=== PATIENT | female | born 1990 | race Caucasian/White ===

== ENCOUNTER 2019-03-04 09:30 | Outpatient (RCR) | payer OTHER, SELFPAY ==
--- NOTE | 2019-02-11 10:20 | PTOPEVAL ---
Thank you for referring this patient to [facility]. Please review, sign, date and return this plan of care LILIAN. Pt seen for her initial evaluation today to address her yennifer hip pain. She requires additional skilled therapy 1-2x/wk x 3 wk to address her pain, soft tissue restriction, muscle weakness and movement impairments. I agree with and certify that the following plan of care is medically necessary. Referring Physician Date Attending Provider: Amber Giron, GARBAGE COLLECTOR Referring Provider: *PT Outpatient Evaluation Start: 02/11/19 09:14 Freq: Status: Active Protocol: Document 02/11/19 09:15 SARAVANAN (Rec: 02/11/19 10:07 SARAVANAN [id number]) Therapy Assessment Status Assessment Status Assessment Status Evaluation Outpatient Past Medical History Reproductive History Hx Other Reproductive Disorders Yes: 36 week Evaluation Information Problem Diagnosis yennifer hip pain Onset August Cause Subjective Information This pt's 3rd . Feb Query Text:As Reported By Patient/ is due date. Hip pain Family started in August with progression of pain 2 wks ago. She has been using an SI belt , stretches and tylenol. She has been performing cat-camel stretch, hip abd/add isometric . She reports the pain started on right back and hip region and then progressed to left side. She had the same symptoms with her 2nd and received 2 treatment. She is limited with walking, steps, carrying objects >10# due to pain. She has a 2 and 1 year old at home. She is trying to limit her lifting of them to avoid increased pain. Previous Treatments Previous Treatments For This Problem during 2nd Prior Level of Function Activity Level (Last 3 Months) Occupation medical office Activity of Daily Living Ability Independent Indoor/Home Mobility Independent Community Mobility Independent Cooking Yes Cleaning Yes Laundry Yes Shopping Yes Driving Yes Pain Assessment Timing of Pain Assessment Timing of Pain Assessment Assessment Pain Scale Pain Scale Used Numeric (1 - 10) Self Report Pain Assessment B
--- NOTE | 2019-02-22 08:12 | PCPTNOTE ---
Patient called & cancelled scheduled appointment this date due to being sick.
--- NOTE | 2019-03-07 08:28 | PCPTNOTE ---
Patient cancelled scheduled appointment this date due to being induced by MD. Will hold chart open for 30 days.
--- NOTE | 2019-03-30 10:07 | PCPTNOTE ---
Admitting Provider: Attending Provider: Amber Giron, DAIRY NUTRITIONIST Patient:Milena Perez Date of :1990 Patient has not returned for any further treatments since 03/04/2019, therefore she will be discharged from therapy at this time. The goals have been partially achieved. At her last visit she demonstrated improved trunk and pelvic position with standing and walking, decreased pain at rest and with activities. She is indep with a HEP and understanding of self-management of pain and pelvic alignment. Thank you for referring this patient to [facility]. Please review, sign, date and return this discharge summary LILIAN. I have been updated about the patient's current status and I agree with discharge from the above service at this time. Referring Physician Date
== END 2019-03-31 08:43 | disposition home or self-care (01) ==
LOC: ANHPT 09:30
PROVIDERS: Visit Provider Nurse Practitioner Family
DX: O99.89 Other specified diseases and conditions complicating pregnancy, childbirth and the puerperium (principal); M25.552 Pain in left hip; M25.551 Pain in right hip; Z3A.36 36 weeks gestation of pregnancy
CPT/HCPCS: 97110; 97140; 97162

== ENCOUNTER 2021-01-08 11:13 | Outpatient (CLI) | payer OTHER, SELFPAY ==
--- NOTE | ~2021-01-08 | US_ITS ---
EXAMINATION: US OB <= 14 weeks fetus DATE: 01/08/2021 12:00 INDICATION: with inconclusive viability. First trimester. TECHNIQUE: Real-time transabdominal and transvaginal pelvic ultrasound was performed. COMPARISON: None. FINDINGS: TRANSABDOMINAL ULTRASOUND: The uterus measures 8.5 x 4.4 x 5.2 cm. TRANSVAGINAL ULTRASOUND: The endometrial complex measures 8 mm in thickness. There is no visible intr auterine gestational sac. The right ovary measures 2.7 x 1.6 x 1.6 cm. The left ovary measures 1.9 x 1.1 x 1.6 cm. There is no free fluid in the pelvis. IMPRESSION: 1. No visible intrauterine gestational sac, which may be normal in early . Spontaneous abor tion and ectopic are not excluded. Serial beta hCGs are recommended. Reviewed, dictated and finalized at location A. TING TECHNICIAN IMPRESSION: 1. No visible intrauterine gestational sac, which may be normal in early pregn gareth. Spontaneous and ectopic are not excluded. Serial beta hCGs are recommended.
== END 2021-01-08 11:14 | disposition home or self-care (01) ==
PROVIDERS: Visit Provider Obstetrics & Gynecology Gynecology
DX: O36.80X0 Pregnancy with inconclusive fetal viability, not applicable or unspecified (principal); Z3A.00 Weeks of gestation of pregnancy not specified
CPT/HCPCS: 36415; 76801; 84702

== ENCOUNTER 2021-01-08 12:22 | Outpatient (RCR) | payer OTHER, SELFPAY ==
[2021-01-08 13:10] LABS: Beta HCG Quantitative 3.49 mIU/ML
== END 2021-01-22 10:41 | disposition home or self-care (01) ==
LOC: ANHLAB 12:22
PROVIDERS: Visit Provider Obstetrics & Gynecology Gynecology
DX: O36.80X0 Pregnancy with inconclusive fetal viability, not applicable or unspecified (principal); Z3A.00 Weeks of gestation of pregnancy not specified
CPT/HCPCS: 36415; 84702

== ENCOUNTER → 2021-06-10 14:25 | Outpatient (CLI) | payer OTHER, SELFPAY ==
--- NOTE | ~2021-06-10 | US_ITS ---
EXAMINATION: US pelvic complete DATE: 06/10/2021 14:41 INDICATION: Irregular menstruation TECHNIQUE: Multiple transabdominal sonographic images of the pelvis were obtained. COMPARISON: 04/22/2012 FINDINGS: Uterus: 8.9 x 4.8 x 5.9 cm. Endometrial complex measures 0.9 cm. Right Ovary: 3.4 x 2.1 x 2.6 cm. Vascular flow is present. Left Ovary: 2.8 x 1.6 x 2.5 cm. Vascular flow is present. There is no free fluid in the pelvis. IMPRESSION: 1. Normal transabdominal pelvic sonogram findings. Reviewed, dictated and finalized at location K.
== END ==
PROVIDERS: Visit Provider Nurse Practitioner
DX: N92.6 Irregular menstruation, unspecified (principal)
CPT/HCPCS: 76856

== ENCOUNTER 2021-09-27 09:55 | Outpatient (CLI) | payer OTHER, SELFPAY ==
--- NOTE | ~2021-09-27 | US_ITS ---
Corrected Report See Bolded Text Order # associated 10/08/2021 SLJ EXAMINATION: US OB <=14 wk fetus w TV; US OB ADD MULTI GESTATION DATE: 06/06/16 13:35:00 INDICATION: Establish dating of during first trimester TECHNIQUE: Real-time pelvic ultrasound utilizing both a transvaginal and transabdominal probe was performed. The interpreting radiologist was not present for the study. COMPARISON: None. FINDINGS: The uterus measures 9.6 x 9.6 x 9.9 cm. There are 2 separate intrauterine gestational sacs by a thick membrane consistent with dichorionic diamniotic . A yolk sac and pole are identified in each gestational sac. 3.1 x 1.2 x 0.6 cm hypoechoic subchorionic hemorrhage at the right side of the uterine fundus. The crown rump length for fetus A in the sac positioned on the left measures 4.0 cm, which correlates with an estimated gestational age of 11 weeks and 0 days. heart motion is identified measuring 147 beats per minute (bpm) by M-mode Doppler. The crown rump length for fetus B in the sac positioned on the right measures 4.0, which correlates with an estimated gestational age of 11 weeks and 0 days. heart motion is identified measuring 153 beats per minute (bpm) by M-mode Doppler. The bilateral ovaries are not visualized. There is no free fluid in the pelvis. IMPRESSION: 1. Dichorionic, diamnionic with 2 living fetuses. 2. Gestational age by ultrasound of 11 weeks 0 day(s) +/- 7 day(s) with ultrasound estimated date of delivery (VIRI) of 04/18/2022. 3. Small subchorionic hematoma. Reviewed, dictated and finalized at location A. MTDD IMPRESSION: 1. Dichorionic, diamnionic with 2 living fetuses. 2. Gestational age by ultrasound of 11 weeks 0 day(s) +/- 7 day(s) with ultras ound estimated date of delivery (VIRI) of 04/18/2022. 3. Small subchorionic hematoma.
== END 2021-09-27 09:56 ==
LOC: MICIMG 09:57
PROVIDERS: PCP Obstetrics & Gynecology Gynecology; Visit Provider Obstetrics & Gynecology Gynecology
DX: O20.8 Other hemorrhage in early pregnancy (principal); Z3A.11 11 weeks gestation of pregnancy
CPT/HCPCS: 76801; 76802; 76817

== ENCOUNTER → 2021-10-29 14:24 | Outpatient (CLI) | payer OTHER, SELFPAY ==
--- NOTE | ~2021-10-29 | US_ITS ---
EXAMINATION: US OB limited DATE: 10/29/2021 15:12 INDICATION: Subchorionic hematoma during second trimester TECHNIQUE: Real-time ultrasound of the pelvis was performed. The interpreting radiologist was not pre sent for the study. COMPARISON: 09/27/2021 FINDINGS: FINDINGS: There are two living fetuses. The placenta(s) is/are anterior with twin peak sign with intervening t hick intervening membrane consistent with a dichorionic diamniotic . A small anechoic placen patricia desir is seen with the placenta projects between the 2 fetuses. The amniotic fluid volume is subje ctively normal. Fetus A on maternal left: Presentation is breech. cardiac activity and movement are noted. heart rate is 162 beats per minute (bpm). Fetus B on maternal right: Presentation is breech. cardiac activity and movement are noted. heart rate is 151 beats per minute (bpm). IMPRESSION: 1. Living dichorionic diamniotic twin fetuses with heart rates of 162 and 151 BPM respectively. 2. Placental desir. No evident subchorionic hematoma. Reviewed, dictated and finalized at location A.
== END ==
PROVIDERS: PCP Obstetrics & Gynecology Gynecology; Visit Provider Obstetrics & Gynecology Gynecology
DX: O36.8920 Maternal care for other specified fetal problems, second trimester, not applicable or unspecified (principal); Z3A.00 Weeks of gestation of pregnancy not specified
CPT/HCPCS: 76815

== ENCOUNTER 2021-12-24 10:50 | Outpatient (CLI) | payer OTHER, SELFPAY ==
--- NOTE | 2021-12-24 | ECG_ITS ---
Measurements Intervals [place] Rate: 87 P: -17 WV: 126 QRS: -23 QRSD: 101 T: 25 QT: 355 QTc: 427 Interpretive Statements SINUS RHYTHM INCOMPLETE RIGHT BUNDLE BRANCH BLOCK DELAYED PRECORDIAL R/S TRANSITION BORDERLINE ECG NO PREVIOUS ECG AVAILABLE FOR COMPARISON Electronically Signed On 12-24-2021 11:43:05 CDT by Jameson Ramirez D.O.
== END 2021-12-24 10:51 | disposition home or self-care (01) ==
LOC: ANHCARD 10:54
PROVIDERS: PCP Obstetrics & Gynecology Gynecology; Visit Provider Obstetrics & Gynecology Gynecology
DX: R06.02 Shortness of breath (principal); I45.10 Unspecified right bundle-branch block
CPT/HCPCS: 93005

== ENCOUNTER 2022-01-12 19:20 | Emergency (ER) | payer OTHER, SELFPAY ==
--- NOTE | ~2022-01-12 | CT_ITS ---
EXAMINATION: CTA chest PE protocol DATE: 01/12/2022 20:56 INDICATION: dyspnea, tachycardia x several weeks, TECHNIQUE: Computed tomography angiography (CTA) of the chest was performed , and patella. Marginal. This intravenous contrast timed to evaluate the pulmonary arteries. Coronal maximum intensity project ion 3D-reconstructions were created by the technologist. The dose-length product (DLP) was 466.15 mGy -cm. Automated exposure control and iterative reconstruction technique were employed. COMPARISON: None. FINDINGS: Lung parenchyma and airways: Clear. Pleura: Unremarkable. Thoracic inlet, axillae and chest wall: Unremarkable. Thoracic aorta: Normal. Mediastinum: Normal. Heart and pericardium: Normal. Coronary artery calcifications: Absent. Upper abdomen: The liver and spleen appear enlarged, likely due to concurrent . Bones: No acute osseous finding. Pulmonary arteries: Study quality: Degraded by late contrast phase and mild respiratory motion, such that subsegmental and non-occlusive segmental emboli could be missed. No pulmonary emboli detected. IMPRESSION: Limited examination as detailed above. Within those constraints, no definite CT evidence of acute sara tral or occlusive segmental pulmonary embolus. Reviewed, dictated and finalized at location K. NEER DESIGN AND CONSTRUCTION IMPRESSION: Limited examination as detailed above. Within those constraints, no definite CT evidence of acute central or occlusive segmental pulmonary embolus.
[2022-01-12 19:26] VITALS: BP 120/71; PULSE 113; RESP 20; TEMP 36.6; O2SAT 100
[2022-01-12] MEDS: LACTATED RINGERS 1,000 ML 999 ML IV CONT (19:55)
[2022-01-12 20:01] LABS: Basophils Percent Auto 0.2 % (0.2-1.2); Eosinophils Absolute Auto 0.1 K/mm3 (0-0.3); Eosinophils Percent Auto 1.2 % (0-4.4); Hemoglobin 8.8 g/dL (12.0-15.0); Immature Granulocyte Absolute 0.13 K/mm3 (0.00-0.031); Immature Granulocyte Percent A 1.5 % (0-0.5); Lymphocytes Absolute Auto 1.28 K/mm3 (0.9-3.2); Lymphocytes Percent Auto 14.9 % (18.3-44.2); Mean Corpuscular HGB Conc 32.6 g/dl (32-36); Mean Corpuscular Hemoglobin 29.9 pg (26-34); Mean Corpuscular Volume 91.8 fl (80-100); Monocytes Absolute Auto 0.5 K/mm3 (0.1-0.6); Monocytes Percent Auto 5.8 % (2.6-8.5); Neutrophils Absolute Auto 6.5 K/mm3 (1.3-6.7); Neutrophils Percent Auto 76.4 % (45.5-73.1); Platelet Count Result 243 k/mm3 (150-375); Red Blood Count 2.94 M/mm3 (4.2-5.4); Red Cell Distribution Width 13.1 % (11.5-14.5); White Blood Count 8.6 K/mm3 (4.5-10.0)
[2022-01-12 20:11] LABS: Influenza A QL RT-PCR Negative (Negative); Influenza B QL RT-PCR Negative (Negative); SARS-CoV-2 RNA PCR Positive
[2022-01-12 20:12] LABS: Alanine Aminotransferase 23 U/L (6-35); Albumin Level 3.9 g/dL (3.5-5.1); Alkaline Phosphatase 134 U/L (38-126); Anion Gap 7 mmol/L (8-16); Aspartate Amino Transferase 31 U/L (14-36); Bilirubin,Total 0.4 mg/dL (0.2-1.3); Blood Urea Nitrogen 4 mg/dL (7-17); Calcium 8.7 mg/dL (8.4-10.2); Carbon Dioxide 23 mmol/L (22-30); Chloride 104 mmol/L (98-107); Estimated Glomerular Filt Rate > 60; Glucose 97 mg/dL (65-110); Magnesium 1.4 mg/dL (1.6-2.3); Potassium 3.6 mmol/L (3.4-5.0); Sodium 134 mmol/L (137-145)
[2022-01-12 20:16] LABS: INR 0.9; Prothrombin Time 11.7 Seconds (11.1-14.7)
[2022-01-12 20:17] LABS: Partial Thromboplastin Time 26.9 SECONDS (22.3-36.8)
[2022-01-12 20:19] LABS: D Dimer 0.98 ug/mL (<0.48)
--- NOTE | 2022-01-12 20:27 | ED.URI ---
HPI - URI/Sore Throat General Chief Complaint: Upper Respiratory Infection Stated Complaint: sent by PCP-body aches, chillsc congestion Time Seen by Provider: 01/12/22 19:31 History of Present Illness HPI Narrative: 31-year-old female who is 26 weeks with twins presents here with URI symptoms for the last 4 days and increasing shortness of breath and chest tightness, she states that about a month ago she started developing shortness of breath and chest tightness as well as tachycardia, she had been getting worked up for this including a cardiology consult and EKG, has never had a workup for blood clots. Related Data Home Medications Medication Instructions Recorded Confirmed levothyroxine 50 mcg tablet 50 mcg PO DAILY 02/18/19 02/22/19 vit no.95-ferrous 1 tablet PO DAILY 02/18/19 02/22/19 fumarate 28 mg-folic acid 800 mcg tablet () ferrous sulfate 325 mg (65 mg 325 mg PO DAILY 02/22/19 02/22/19 iron) tablet aspirin 81 mg tablet,delayed mg 01/12/22 release ondansetron HCl 4 mg tablet mg 01/12/22 Allergies Allergy/AdvReac Type Severity Reaction Status Date / Time No Known Allergies Allergy Verified 01/12/22 19:29 Review of Systems Review of Systems: CONST: Fever. HEENT: Sore throat C/V: Chest tightness RESP: Cough and dyspnea on exertion GI: Nausea : No dysuria. M/S: Muscle aches SKIN: No rash. NEURO: [No headache or focal numbness or weakness] PSYCH: [No depression] [facility] Past Medical History Medical History Hypothyroidism Family History Family History Mother Glaucoma Hypertension Rheumatoid arthritis Diabetes mellitus Father Hypertension Hypothyroidism Sibling Hypothyroidism Social History Social History Smoking status: Never smoker Substance use: never Gender identity (if verbalized by the patient): Female Spiritual care concerns: No Exam Narrative: EXAMINATION OF ORGAN SYSTEMS/BODY AREAS: Constitutional: Vital signs per nursing GENERAL:[No acute distress, non-toxic appearing.] HEAD: Normal with no signs of head trauma. EYES: EOMI, conjunctiva normal ENT: Hearing grossly intact, rhinorrhea LUNGS: Slightly dyspneic, clear lungs HEART: Tachycardic ABD: [Soft], gravid, nontender to palpation EXT: Normal range of motion, no lower extremity edema SKIN: [No rashes or lesions.] NEURO: [Alert and oriented x 3. No gross focal sensory or strength deficits.] PSYCH: Normal affect Course Vital Signs Vital signs: Vital Signs Temperature 97.9 F 01/12/22 19:26 Pulse Rate 113 H 01/12/22 19:26 Respiratory Rate 20 01/12/22 19:26 Blood Pressure 120/71 01/12/22 19:26 Pulse Oximetry 100 01/12/22 19:26 Oxygen Delivery Room Air 01/12/22 19:26 Temperature 97.9 F 01/12/22 19:26 Pulse Rate 113 H 01/12/22 19:26 Respiratory Rate 20 01/12/22 19:26 Blood Pressure 120/71 01/12/22 19:26 Pulse Oximetry 100 01/12/22 19:26 Oxygen Delivery Room Air 01/12/22 19:26 MDM - URI/Sore Throat MDM Narrative Medical decision making narrative: ED COURSE AND MEDICAL DECISION MAKING: This 31-year old patient presents with symptoms most suggestive of viral upper respiratory tract infection. Lungs are clear bilaterally without any respiratory distress or accessory muscle use though some slight dyspnea. I did discuss with the patient that her symptoms were most likely from a viral illness, however given her multiple weeks of increasing dyspnea and tachycardia in the context of , with increasing dyspnea on exertion, patient would like to have work-up for possible blood clots and I do feel this is reasonable. Labs and D-dimer therefore sent, and as D-dimer is elevated CT PE is ordered. Discussion with patient she would like to have a CT at least for peace of mind given her darian
--- NOTE | 2022-01-12 21:10 | PC.NURSE ---
RN at bedside to dopple FHTs per order from Dr. Amezcua. FHT doppled. BABY A 155BPM and BABY B 155BPM. Active movement noted via palpation and audible. Patient also reports active movements throughout the day. Patient denies any cramping, contractions, pressure or tightening. FHT appropriate for gestational age.
[2022-01-12] MEDS: MAGNESIUM SULF 2 GM/WATER 50ML 2 GM/50 ML BAG IVPB (21:28)
[2022-01-12 22:34] VITALS: PULSE 92; RESP 18; O2SAT 100
== END 2022-01-12 22:35 | disposition home or self-care (01) ==
PROVIDERS: Nurse Practitioner Family; Emergency Provider Emergency Medicine; PCP Obstetrics & Gynecology Gynecology
DX: O98.512 Other viral diseases complicating pregnancy, second trimester (principal); U07.1 COVID-19; J06.9 Acute upper respiratory infection, unspecified; O30.002 Twin pregnancy, unspecified number of placenta and unspecified number of amniotic sacs, second trimester; O99.282 Endocrine, nutritional and metabolic diseases complicating pregnancy, second trimester; E03.9 Hypothyroidism, unspecified; Z3A.26 26 weeks gestation of pregnancy; Z79.82 Long term (current) use of aspirin
CPT/HCPCS: 36415; 71275; 80053; 83735; 85025; 85380; 85610; 85730; 87636; 96361; 96365; 99284; J3475; J7120; Q9967

== ENCOUNTER 2022-02-28 15:57 | Observation (INO) | payer OTHER, SELFPAY ==
[2022-02-28] VITALS (16 sets, daily range): BP systolic 130–145; BP diastolic 71–87; PULSE 88–125; O2SAT 99–100; BMI 29.6
--- NOTE | ~2022-02-28 | US_ITS ---
US OB limited, US OB transvaginal 02/28/2022 18:14 Indication: labor. Evaluate cervical length. Procedure: High-resolution Limited obstetrical ultrasound using transabdominal technique Comparison: Ultrasound dated 10/29/2021 Findings: There are twin living intrauterine pregnancies, both of which are in vertex presentation. T win A heart rate is 148 BPM. Twin B heart rate is 146 BPM. Placenta is fundal/anterior wi thout previa. Cervical length is 2.1 cm. Impression: 1: Twin living intrauterine in vertex presentation. 2: Cervical length measures 2.1 cm. Reviewed, dictated and finalized at location A. MOSTATIC CONTROLS SUPERVISOR Impression: 1: Twin living intrauterine in vertex presentation. 2: Cervical length measures 2.1 cm. Impression: 1: Twin living intrauterine in vertex presentation. 2: Cervical length measures 2.1 cm.
--- NOTE | 2022-02-28 16:32 | OBADM ---
This patient, Milena Perez, admitted to the OB room OB Post 115 for observation. Patient/family oriented to hospital policies and general routines including ID bracelet, bed and alarms, visiting hours, pain management, procedures, bathroom and other care routines, personal items, smoking policy, room service/diet, and visiting hours. Patient/Family are encouraged to report perceived risks to care and to ask questions if they do not understand what they are told or what they should do.
[2022-02-28] MEDS: TERBUTALINE SULFATE 1 MG/ML VIAL 0.25 MG SUB-Q (16:55)
[2022-02-28 17:44] LABS: Fetal Fibronectin Positive
[2022-02-28] MEDS: BETAMETHASONE SOD PHOS/ACETATE 30 MG/5 ML VIAL 12 MG IM (18:22)
--- NOTE | 2022-02-28 18:51 | PC.NURSE ---
1836--Report to Dr Amezcua re: u/s and cervical length 2.1 cm. States that he will come in to see pt and plan will be to transfer to higher level of care.
--- NOTE | 2022-02-28 18:54 | PC.NURSE ---
1742--Report to Dr Amezcua re: positive FFN, cervix closed, and ctxns continue, but palpate milder than earlier. Orders that I can give a second dose of terb if pt. gets uncomfortable with ctxns, to give betamethasone q24h X2 doses, and do an u/s for cervical length.
--- NOTE | 2022-02-28 19:00 | PC.NURSE ---
1638--Report to Dr. Amezcua re: ctxns q 2-4 min palpate mod/strong and pt. uncomfortable with them. Orders for terbutaline, FFN and cervical check.
--- NOTE | 2022-02-28 19:27 | PM.IMHP ---
H&P: HPI History of Present Illness Date/Time: 02/28/22 19:27 Chief Complaint: labor Narrative: 31 yo at 33w0d with Di/Di twin who presents with complaint of contractions. Pt was receiving an Iron transfusion today when she started noticing intense contractions. Pt had been feeling infreqeuent Eduard-Villarreal contractions for the past two days. She states she began to feel increased pressure and frequency. She denies any vaginal [id number] or leakage of fluid. She reports good movement. She states her has been uncomplicated thus far. Review of Systems Review of Systems: All systems reviewed & are unremarkable except as noted in HPI and below Cardiovascular: Cardiovascular: Denies chest pain, Denies leg edema, Denies palpitations, Denies dyspnea and Denies dyspnea on exertion Respiratory: Respiratory: Denies cough, Denies dyspnea and Denies dyspnea on exertion Gastrointestinal: Gastrointestinal: Denies abdominal pain, Denies constipation, Denies diarrhea, Denies nausea and Denies vomiting Genitourinary: Genitourinary: Denies hematuria, Denies urinary frequency, Denies dysuria, Denies pelvic pain, Denies urinary incontinence and Denies vaginal discharge Neurologic: Reports system reviewed and no additional complaints, except as documented Psychiatric: Psychiatric: Reports no additional psychiatric complaints Endocrine: Endocrine: Denies palpitations PMFSH Past Medical History Medical History Hypothyroidism Family History Family History Mother Glaucoma Hypertension Rheumatoid arthritis Diabetes mellitus Father Hypertension Hypothyroidism Sibling Hypothyroidism Social History Social History Smoking status: Never smoker Substance use: never Gender identity (if verbalized by the patient): Female Spiritual care concerns: No Meds Home Medications and Allergies Home Medications Medication Instructions Recorded Confirmed Type levothyroxine 50 mcg tablet 50 mcg PO DAILY 02/18/19 02/28/22 History vit no.95-ferrous 1 tablet PO DAILY 02/18/19 02/28/22 History fumarate 28 mg-folic acid 800 mcg tablet () ferrous sulfate 325 mg (65 mg 325 mg PO DAILY 02/22/19 02/28/22 History iron) tablet aspirin 81 mg tablet,delayed 81 mg PO DAILY 01/12/22 02/28/22 History release Allergies Allergy/AdvReac Type Severity Reaction Status Date / Time No Known Allergies Allergy Verified 02/28/22 13:42 Vital Signs Vital Signs - 24 hr 02/28/22 16:15 02/28/22 16:30 02/28/22 16:45 Pulse Rate 103 H 88 106 H Blood Pressure 130/82 145/82 H 136/85 Pulse Oximetry 02/28/22 17:00 02/28/22 17:15 02/28/22 17:30 Pulse Rate 108 H 116 H 107 H Blood Pressure 142/87 H 145/81 H 145/78 H Pulse Oximetry 02/28/22 17:45 02/28/22 19:13 02/28/22 19:18 Pulse Rate 108 H Blood Pressure 142/87 H Pulse Oximetry 100 99 02/28/22 19:23 02/28/22 19:25 Pulse Rate 125 H Blood Pressure 138/85 Pulse Oximetry 100 Exam Const: General: no acute distress Eyes: EOM: EOMs intact bilaterally Neck: Neck: supple Thyroid: thyroid normal Chest: Breast/axilla inspection: normal inspection of the breasts Breast/axilla palpation: normal palpation of the breasts, normal palpation of the axillae and no axillary lymphadenopathy Resp: Effort & Inspection: normal respiratory effort Auscultation: clear to auscultation bilaterally Cardio: Rate: regular rate Rhythm: regular rhythm GI: Inspection: non-distended and other (Gravid) GI Palp: Yes Soft to palpation, No Tenderness to palpation present (GI) and No Guarding due to palpation present (GI) Auscultation: normal bowel sounds : Speculum Exam - Vagina: No vaginal bleeding OB/external & speculum: external exam normal; No vaginal bleeding
--- NOTE | 2022-02-28 20:47 | PC.NURSE ---
1900: OB at bedside discussing transfer to [facility]. Patient to drive self to [facility] via personal car.
--- NOTE | 2022-03-03 11:33 | PM.OBTRLD ---
OB - Triage/Final Diagnosis Visit Information Date of evaluation: 03/01/22 Reason for evaluation: threatened labor Comments/Additional reasons for admission: I have assessed the risk for this patient, Milena Perez, and determined that she would benefit from observation care. Evaluation Laboratory results: Laboratory Tests 02/28/22 17:01 Fibronectin Positive
== END 2022-02-28 20:50 ==
PROVIDERS: Admitting Provider Student in an Organized Health Care Education/Training Program; Visit Provider Student in an Organized Health Care Education/Training Program
DX: O47.03 False labor before 37 completed weeks of gestation, third trimester (principal); O09.93 Supervision of high risk pregnancy, unspecified, third trimester; O99.013 Anemia complicating pregnancy, third trimester; D64.9 Anemia, unspecified; O30.043 Twin pregnancy, dichorionic/diamniotic, third trimester; O99.283 Endocrine, nutritional and metabolic diseases complicating pregnancy, third trimester; E03.9 Hypothyroidism, unspecified; Z3A.33 33 weeks gestation of pregnancy; Z84.89 Family history of other specified conditions; Z79.82 Long term (current) use of aspirin; Z79.899 Other long term (current) drug therapy
CPT/HCPCS: 76815; 76817; 82731; 96372; G0378; G0379; J0702; J3105

== ENCOUNTER 2022-05-19 12:48 | Outpatient (RCR) | payer OTHER, SELFPAY ==
--- NOTE | 2022-05-19 15:46 | PC.NURSE ---
In- 1248 Out- 1445 Reason for visit: Latch issues with Baby Bettina Fitzgerald History: L5 32 Y.O. mother Milena was given Celestone at [place] for PTL with a multiple gestation , then transferred care to [place]. Twins were delivered at 33 2/7 gestation. Mother's medical history includes: Hypothyroidism & low milk supply. Baby Lizeth Chatterjee recovered easier and quicker than Baby Bettina Fitzgerald who had been breech. Mother breastfeeds at 03,06,09,1200,1500,1800 and is flexible at times when needed to feed an infant showing feeding cues. The 1500 and 1800 feedings sometimes have supplementation added to the with Neosure. The 2100 & 0000 feedings are supplement only and mother denies pumping or through the night. History: History is limited as they were NICU infants at [place]. They are 10weeks old at the time of this appointment. Observations: Baby Bettina doesn't open with a big, wide gape and mother allows her to suck the breast into her mouth. Swallowing is heard along with clicking. pops off with milk in her mouth. Mother was assisted with a more optimal position suggestion and encouraged to wait for infant to open wide. We discussed moving the fingers back away from the areola to allow for a deeper latch. Bettina was able to latch optimally with a deep latch, no pain to mother, no clicking or popping off, and lingered at the breast drinking. It was suggested if she seems to be struggling with a fast let-down of milk flow, then consider leaning back instead of forward to let gravity help reduce the amount of milk flowing fast and strong. weight: Baby B 5-2 ( focused on related to latch issues) Baby A 4-12 Mother wanted latch assessed to confirm that it was optimal. Lowest weight: Mother is unsure Last weight: Baby B 9-2 Baby A 8-12 Pre-feed weight: Baby B 4706g (10-5.7) Baby A 4601g (10-2.2) Post-feed weight: Baby B 4769 (10-8.2) Baby A 4695g (10-5.6) Plan of Care: Mother plans to practice latching her daughter Amilcar with a big, open wide gape bringing her to the breast for a deeper latch with a good sandwich support to achieve the optimal latch. Reviewed best practice to protect the milk supply, risks and benefits so mother can make an informed decision on her practice. We discussed healthy balance of keeping her infants fed, growing and healthy with her health mentally and physically. Mother confirms that she has a mother who lives close by that will come and help her. Mother was encouraged to receive help from people she can trust. Follow up plans: Mother plans to follow up with ICP at the regular scheduled appointment. Mother voiced understanding that if she had concerns or question she can reach out to the services at [place] or community resources.
== END 2022-08-17 23:59 | disposition home or self-care (01) ==
LOC: ANHOBOP 12:48
PROVIDERS: Visit Provider Pediatrics
DX: Z39.1 Encounter for care and examination of lactating mother (principal)
CPT/HCPCS: 99205; G0463

== ENCOUNTER 2023-03-31 14:11 | Outpatient (CLI) | payer OTHER, SELFPAY | END 2023-03-31 14:12 | disposition home or self-care (01) | LOC: ANHLAB 14:12 | PROVIDERS: Visit Provider Obstetrics & Gynecology Gynecology | DX: R76.0 Raised antibody titer (principal) | CPT/HCPCS: 36415; 86850; 86870; 86880; 86886; 86900; 86901; 86906 ==

== ENCOUNTER 2023-04-06 11:14 | Observation (INO) | payer OTHER, SELFPAY ==
--- NOTE | 2023-04-06 11:14 | LDADM ---
This patient, Milena Perez, was admitted to OB Post 115 on 04/06/23 at 11:14. Plans for labor, pain management and were discussed with patient. Patient/family oriented to hospital policies and general routines including ID bracelet, bed and alarms, visiting hours, pain management, procedures, bathroom and other care routines, personal items, smoking policy, room service/diet and guest tray routines, security routines, and visiting hours. Patient/Family are encouraged to report perceived risks to care and to ask questions if they do not understand what they are told or what they should do. See OBIX for further documentation.
[2023-04-06 11:30] VITALS: BMI 29.3
[2023-04-06] MEDS: DEXTROSE 5%/LACTATED RINGERS 1,000 ML 999 ML IV CONT (12:02)
[2023-04-06] MEDS: ONDANSETRON INJ 4 MG/2 ML VIAL IV PUSH ×2 (12:22→17:20)
[2023-04-06 12:31] VITALS: BP 125/71; PULSE 94
[2023-04-06 12:43] LABS: Appearance Urine Clear (Clear); Bacteria Urine None Seen /hpf; Bilirubin Urine Negative (Negative); Blood Urine Negative (Negative); Color Urine Yellow (Yellow); Glucose Urine UA Negative (Negative); Ketones Urine 1+ mg/dL (Negative); Leukocyte Esterase Ur Negative LEU/UL (Negative); Nitrate Urine Negative (Negative); Non Pathogenic Casts 0-2; Protein Urine Trace mg/dL (Negative); RBC Urine 0-2 /hpf (0-2); Specific Grav Ur 1.022 (1.001-1.035); Squamous Epithelial Cell Urine Few /hpf (Few); Urobilinogen Urine 0.2 mg/dL (<2.0); WBC Urine 0-5 /hpf; pH Urine 6.5 (5.0-9.0)
[2023-04-06] MEDS: DEXTROSE 5%/LACTATED RINGERS 1,000 ML 175 ML IV CONT (12:45)
[2023-04-06 12:46] VITALS: BP 127/65; PULSE 96
[2023-04-06 12:46] LABS: Add Urine Microscopic? YES
[2023-04-06] MEDS: ACETAMINOPHEN 500 MG TABLET 1000 MG PO (15:02)
--- NOTE | 2023-04-09 07:55 | P.PNOB_ITS ---
OB - Triage/Final Diagnosis Visit Information Reason for evaluation: other (viral gastroenteritis with dehydration) Comments/Additional reasons for admission: I have assessed the risk for this patient, Milena Perez, and determined that she would benefit from observation care. Evaluation Laboratory results: Laboratory Tests 04/06/23 12:26 Urine Color Yellow Urine Appearance Clear Urine pH 6.5 Ur Specific [place] 1.022 Urine Protein Trace Urine Glucose (UA) Negative Urine Ketones 1+ H Ur Blood (Man) Negative Urine Nitrate Negative Urine Bilirubin Negative Urine Urobilinogen 0.2 Leukocyte Esterase Rfl Negative Urine RBC 0-2 Urine WBC 0-5 Ur Squamous Epith Cells Few Urine Bacteria None seen Urine Casts 0-2
== END 2023-04-06 17:30 | disposition home or self-care (01) ==
PROVIDERS: Admitting Provider Obstetrics & Gynecology Gynecology; Visit Provider Obstetrics & Gynecology Gynecology
DX: O99.613 Diseases of the digestive system complicating pregnancy, third trimester (principal); A08.4 Viral intestinal infection, unspecified; O99.283 Endocrine, nutritional and metabolic diseases complicating pregnancy, third trimester; E86.0 Dehydration; Z3A.36 36 weeks gestation of pregnancy
CPT/HCPCS: 81001; 96361; 96374; 96376; A9270; G0378; G0379; J2405; J7121

== ENCOUNTER 2023-04-19 02:07 | Inpatient (IN) | payer OTHER, SELFPAY ==
[2023-04-19] VITALS (108 sets, daily range): BP systolic 114–150; BP diastolic 39–88; PULSE 78–111; RESP 16–18; TEMP 36.4–36.8; O2SAT 97–100; BMI 30.2
--- NOTE | 2023-04-19 02:07 | LDADM ---
This patient, Milena Perez, was admitted to Labor/Delivery/Recovery 106 on 04/19/23 at 02:07. Plans for labor, pain management and were discussed with patient. Patient/family oriented to hospital policies and general routines including ID bracelet, bed and alarms, visiting hours, pain management, procedures, bathroom and other care routines, personal items, smoking policy, room service/diet and guest tray routines, infant security routines, and visiting hours. Patient/Family are encouraged to report perceived risks to care and to ask questions if they do not understand what they are told or what they should do. See OBIX for further documentation.
[2023-04-19 04:40] LABS: Basophils Absolute Auto 0.1 K/mm3 (0.0-0.1); Basophils Percent Auto 0.4 % (0.2-1.2); Eosinophils Percent Auto 0.3 % (0-4.4); Hematocrit 30.3 % (37.0-47.0); Hemoglobin 10.1 g/dL (12.0-15.0); Immature Granulocyte Absolute 0.13 K/mm3 (0.00-0.031); Immature Granulocyte Percent A 0.9 % (0-0.5); Lymphocytes Absolute Auto 1.78 K/mm3 (0.9-3.2); Lymphocytes Percent Auto 12.8 % (18.3-44.2); Mean Corpuscular HGB Conc 33.3 g/dl (32-36); Mean Corpuscular Hemoglobin 31.7 pg (26-34); Mean Platelet Volume 10.9 fl (7.4-10.4); Monocytes Absolute Auto 0.8 K/mm3 (0.1-0.6); Monocytes Percent Auto 5.5 % (2.6-8.5); Neutrophils Absolute Auto 11.2 K/mm3 (1.3-6.7); Neutrophils Percent Auto 80.1 % (45.5-73.1); Platelet Count Result 225 k/mm3 (150-375); Red Blood Count 3.19 M/mm3 (4.2-5.4); Red Cell Distribution Width 15.1 % (11.5-14.5); White Blood Count 13.9 K/mm3 (4.5-10.0)
[2023-04-19] MEDS: LACTATED RINGERS 1,000 ML 125 ML IV CONT (04:51)
--- NOTE | 2023-04-19 05:23 | WPDANESEPP ---
Anes - Eval Pre Procedure Procedure: Labor epidural Date/Time: 04/19/23 05:23 Surgeon: Ana Preop Diagnosis: Abd pain with contractions Pre Op Diagnosis: Contractions Patient Data Age: 33 Gender: F Height: 1.63 m Weight: 80 kg Last Vital Signs Temp 98.3 F 04/19/23 02:16 Pulse 83 04/19/23 05:16 Resp 16 04/19/23 02:16 BP 132/79 04/19/23 05:16 O2 Del Method Room Air 04/19/23 04:18 Allergies Allergy/AdvReac Type Severity Reaction Status Date / Time No Known Allergies Allergy Verified 04/03/23 12:27 Home Medications Medication Instructions Recorded Confirmed Type levothyroxine 50 mcg tablet 50 mcg PO DAILY 02/18/19 04/03/23 History vit no.95-ferrous 1 tablet PO DAILY 02/18/19 04/03/23 History fumarate 28 mg-folic acid 800 mcg tablet () ferrous sulfate 325 mg (65 mg 325 mg PO DAILY 02/22/19 04/03/23 History iron) tablet Laboratory Tests 04/19/23 04:29 WBC 13.9 H K/mm3 (4.5-10.0) RBC 3.19 L M/mm3 (4.2-5.4) Hgb 10.1 L g/dL (12.0-15.0) Hct 30.3 L % (37.0-47.0) MCV 95.0 fl (80-100) MCH 31.7 pg (26-34) MCHC 33.3 g/dl (32-36) RDW 15.1 H % (11.5-14.5) Plt Count 225 k/mm3 (150-375) MPV 10.9 H fl (7.4-10.4) Immature Gran % (Auto) 0.9 H % (0-0.5) Neut % (Auto) 80.1 H % (45.5-73.1) Lymph % (Auto) 12.8 L % (18.3-44.2) [place] % (Auto) 5.5 % (2.6-8.5) Eos % (Auto) 0.3 % (0-4.4) Baso % (Auto) 0.4 % (0.2-1.2) Lymph # (Auto) 1.78 K/mm3 (0.9-3.2) [place] # (Auto) 0.8 H K/mm3 (0.1-0.6) Eos # (Auto) 0.0 K/mm3 (0-0.3) Baso # (Auto) 0.1 K/mm3 (0.0-0.1) Abs Immat Gran (auto) 0.13 H K/mm3 (0.00-0.031) Absolute Neuts (auto) 11.2 H K/mm3 (1.3-6.7) Absolute Nucleated RBC 0.0 K/mm3 (0.0-0.012) Nucleated RBC % 0.0 % (0.0-0.2) RPR Pending Patient hx anesthesia problems: none Family hx anesthesia problems: none Results Review: All pre-operative results and documents have been reviewed as part of the pre-operative evaluation. [facility] Past Medical History Medical History Hypothyroidism Overweight (BMI 25.0-29.9) Family History Family History Mother Glaucoma Hypertension Rheumatoid arthritis Diabetes mellitus Father Hypertension Hypothyroidism Sibling Hypothyroidism Social History Social History Smoking status: Never smoker Substance use: never Do You Feel Safe in your Home?: Yes Lack of Transportation: No Lack of Food: Never True Current Housing: I Have Housing Concerned About Future Housing: No Difficulty Paying Gas/Electric Bills: No Difficulty Paying for Meds: No Currently Unemployed: No Education: Decline to Answer Difficulty w/ Childcare or Family Care: No Gender identity (if verbalized by the patient): Female Spiritual care concerns: No Exam Day of Procedure 04/19/23 05:23 Patient weight: overweight
[2023-04-19] MEDS: fentaNYL CITRATE INJ (*CRX) 100 MCG/2 ML VIAL 50 MCG IV PUSH (05:24)
--- NOTE | 2023-04-19 09:15 | WPDOBADMIT ---
Obstetrics - Admit Note Admission Note: record reviewed. Additions to the history and/or subsequent changes in the physical findings follow. 33 y/o at 38 4/7 weeks here with contractions. Found to be in labor. Now comfortable with epidural. GBS neg. Hypothyroidism, on levothyroxine. US at 33 weeks showed EFW 96th percentile. AVSS NST reactive TOCO: contractions every 2-3 min ABD soft, nontender, gravid, vertex EXT nontender Cervix 7/100/0. AROM with clear fluid. Vertex. A: IUP at term with labor. Suspected LGA. P: Anticpate .
[2023-04-19] MEDS: OXYTOCIN 30 UNITS/NS 500 ML 30 UNITS/500 ML BAG 999 UNITS IV CONT (09:30)
--- NOTE | 2023-04-19 09:37 | P.PCNOB_ITS ---
OB - Vaginal Delivery Note Procedure Delivery date: 04/19/23 Induction method: None Delivery augmentation: Rupture of Membranes Delivery monitor: External FHT and External Uterine Route of delivery: Episiotomy description: None Laceration Description: None Specimen: Yes (cord blood) Quantitative Blood Loss (ml): 120 Anesthesia type: Epidural Disposition: PACU Complications: None [place] Baby Date of : 04/19/23 Time of : 09:28 Weeks of gestation at delivery: 38 gender: Female presentation: vertex position: Left Occiput Anterior Placenta delivery description: Spontaneous and Normal Configuration Cord Vessel Description: 3 Vessels and Delayed Cord Clamping score one minute: 9 score five minutes: 9
[2023-04-19] MEDS: OXYTOCIN 30 UNITS/NS 500 ML 30 UNITS/500 ML BAG 125 UNITS IV CONT (10:05)
[2023-04-19] MEDS: BENZOCAINE 20% AER SPR (*SP) 56 GM CAN 1 SPRAY TOPICAL (11:47)
[2023-04-19] MEDS: WITCH HAZEL 40 PADS 1 PAD TOPICAL (11:47)
[2023-04-19] MEDS: IBUPROFEN 600 MG TABLET PO ×2 (11:51→17:47)
[2023-04-19] MEDS: ACETAMINOPHEN 325 MG TABLET 650 MG PO (11:51)
[2023-04-19] MEDS: DOCUSATE SODIUM 100 MG CAPSULE PO (17:48)
[2023-04-20] MEDS: IBUPROFEN 600 MG TABLET PO ×2 (03:14→10:15)
[2023-04-20 03:29] LABS: Hematocrit 29.1 % (37.0-47.0); Hemoglobin 9.5 g/dL (12.0-15.0)
[2023-04-20 07:45] VITALS: BP 135/63; PULSE 87; RESP 16; TEMP 36.5; O2SAT 99
[2023-04-20] MEDS: LEVOTHYROXINE SODIUM 50 MCG TABLET PO (07:57)
[2023-04-20] MEDS: MULTIVIT/MIN/PREN/FOL AC/IRON TABLET 1 TAB PO (07:58)
[2023-04-20] MEDS: ACETAMINOPHEN 325 MG TABLET 650 MG PO (07:58)
[2023-04-20] MEDS: POLYSACCHARIDE IRON COMPLEX 150 MG CAPSULE PO (07:58)
[2023-04-20] MEDS: DOCUSATE SODIUM 100 MG CAPSULE PO (07:59)
--- NOTE | 2023-04-20 09:13 | PM.OBPNVD ---
OB - PN: Subj Subjective Date/time seen: 04/20/23 09:13 Patient comments: no complaints and pain well controlled baby status: doing well OB - PN: Obj Data Labs 04/20/23 03:22 Labs: Laboratory Results - last 24 hr 04/19/23 04/20/23 04:29 03:22 Hgb 9.5 L Hct 29.1 L Blood Type AB Positive Antibody Screen Positive Antibody Identification Anti-E Antigen Identification TNP SIDDHARTH, Poly Interpret Negative Enhanced Crossmatch See Detail OB - PN A/P Plan day: 1 Plan: routine care Time Spent With Patient Time: Total time spent is greater than 50% in coordination of care (as documented) at patient's floor/unit and/or counseling patient: Exam : Bimanual exam- vagina & uterus: other (Uterus firm, nt @U)
--- NOTE | 2023-04-20 15:21 | PC.NURSE ---
[id number] Introductions were made, then consulted with patient to assess needs related to . Discussed with mother her?plans to feed?her infant, the?experience so far, and she shared her extensive history with her other 5 children. is in the nursery getting a bath and mother thinks there's testing as well. Mother is anxiously awaiting the return of her infant as it has been 3 hours since the start of the last feeding. Resources provided for inpatient and outpatient services with the mom/baby guide and name written on the communication board. Mother voiced understanding of information and will call if there is a request for assistance. 1105 - brought to mother and she is confident to breastfeed independently. Post bath temperature is 98.6. [id number] Mother is demonstrating her ability to independently latch infant with appropriate positioning and alignment. She denies any nipple discomfort and is responsively . Infant is currently meeting outcomes for weight, output, jaundice, blood sugar and feeding frequencies of 8-12 times in 24 hours. Education given to the mother of how to visualize the suckling (with good rocking jaw motion), swallows (dropping of the lower jaw) and how to listen for drinking at the breast (the ka sound). Infant was able to maintain latch without pain to mother protecting the nipple with optimal positioning and latching. Reviewed comfort measures of healing with a warm, wet washcloth to rinse breast, then leave open to air-dry, good handwashing when or touching the breast/nipples to prevent infection. Mother voiced understanding of skin to skin, stimulating with massage touch, responsive feedings, hand expressed colostrum, talking to to encourage if it has been 2 -2.5 hours since the start of the last , to call if infant does not latch, or if there is discomfort with . Resources used for education were facilitated with the visual educational handouts/ tool/mom and baby guide. Inpatient/outpatient resources provided with business card, name written on the communication board, and the mom/baby guide. Mother declines any additional assistance or education at this time. Mother is encouraged to call for assistance if her infant doesn?t latch, difficulty waking to breastfeed, pain with latching, questions or concerns. Mother voiced understanding of information shared.
[2023-04-20 15:32] LABS: Rapid Plasma Reagin Non-Reactive (NonReactive)
--- NOTE | 2023-04-20 19:50 | PC.NURSE ---
Outcomes charted for 1345 are the correct ones.
[2023-04-21 13:47] VITALS: BP 134/79; PULSE 71; RESP 18; O2SAT 100
--- NOTE | 2023-04-22 14:14 | PM.OBDSVD ---
DS: Admitting Diagnosis Discharge Date 04/20/23 Admitting Diagnosis labor DS: Discharge Diagnosis Discharge Diagnosis (1) (normal spontaneous vaginal delivery): Code(s): O80 - Encounter for full-term uncomplicated delivery Status: Acute OB - DS: Summary OB Procedures : Ultrasound OB Procedures Intrapartum: Spontaneous Vag Delivery OB Procedures: : None Peripartum Data Laceration Description: None Episiotomy description: None complications: none Status at Discharge Functional status at discharge: independent ambulation Overall status at discharge: patient is progressing back to baseline Time Spent with Patient Time attestation: Total time spent providing and/or coordinating discharge services: Discharge Plan Discharge Attending physician on discharge: Dana Perez Consulting providers: Brannon Flores; Fahad Hung Discharging Clinician: Dana Perez Anticipated Discharge Date/Time: 04/20/23 09:13 Patient Disposition: Home, Self-Care Activity: pelvic rest Diet: regular Discharge Instructions: Education: Mom and Baby Guide Given to: Mother Follow-Up: Call your delivering provider's office for an appointment to be seen in: 1 Week Mom and baby should come to the [facility] for the follow-up appointment. Appointment Date/Time: Friday, April 21, 2023 at 1:30 pm What to expect at your follow-up visit: Physical Assessment Call [phone] if you are unable to keep your appointment time. BREAST CARE: * Wear a snug supportive bra. * For engorgement discomfort: Breast Feeding: * Apply warm moist washcloths * Express milk as needed to relieve engorgement * Wear loose clothing Bottle Feeding: * May apply ice packs * For sore nipples: * Identify correct latch-on * Apply warm moist washcloths before and after nursing * Air dry nipples after nursing * May apply Lansinoh cream to nipples ABDOMINAL INCISION: (if applicable) * Allow incision to air dry * Do NOT use lotions for powders on your incision * When showering, allow soap and water to run over the incision, but do not wash incision PERINEAL CARE: * Until bleeding stops, use your jessy bottle after urinating * Change your pad frequently throughout the day * You may take sitz baths several times a day (fill your bathtub with warm water and soak for 20 minutes.) Do NOT bathe in the water * No tub baths until seen by your physician - You may shower ACTIVITY: * Rest as much as possible. * Do not exercise or lift anything heavier than your baby (such as laundry or other children.) * Avoid stairs or driving as much as possible. * Do not put anything into the vagina. No douching, tampons, or sexual activity until seen by physician. NOTIFY PHYSICIAN IF YOU HAVE ANY QUESTIONS OR IF ANY OF THE FOLLOWING SYMPTOMS OCCUR: * If your episiotomy or incision becomes red, swollen, or more painful than what you have experienced in the hospital. * If your vaginal bleeding becomes foul smelling. * If your vaginal bleeding becomes more heavy than a period or if your bleeding changes from pink to bright red. However, you may pass an occasional walnut-sized clot once or twice for the first week . * If you experience a sharp, shooting pain in you calves. * If you discover a hard, reddened area on your breast or if you experience flu-like symptoms. DIET: * Eat regular, well-balanced meals. * Drink plenty of fluids daily. If , drink to thirst. Per Ana, Call or return if temperature above 100.4? F, increased abdominal pain, increased vaginal bleeding or any new problems. Follow-up/Referrals: Mikayla Cortez CNM [Certified Nurse Rubber Washer] - 6 Weeks Discharge Medications: Continued ferrous sulfate 325 mg (65 mg iron) Tablet 32
== END 2023-04-20 13:45 | disposition home or self-care (01) | DRG 807 ==
LOC: ANHLDR 09:43 → ANHOB2 16:28
PROVIDERS: Obstetrics & Gynecology; Admitting Provider Obstetrics & Gynecology Gynecology; Referring Provider Advanced Practice Midwife; Visit Provider Obstetrics & Gynecology Gynecology
DX: O99.284 Endocrine, nutritional and metabolic diseases complicating childbirth (principal); Z37.0 Single live birth; E03.9 Hypothyroidism, unspecified; Z3A.38 38 weeks gestation of pregnancy
CPT/HCPCS: 36415; 85014; 85018; 85025; 86592; 86850; 86880; 86900; 86901; 86902; 86922; A9270; J2590; J2795; J3010; J7120